=== PATIENT | female | born 1965 | race American Indian/Alaskan Native ===

== ENCOUNTER 2018-07-02 10:39 | Emergency (ER) | payer BC, OTHER ==
--- NOTE | 2018-07-02 12:44 | Emergency Department Report ---
ED Extremity Problem HPI - General Chief complaint: Extremity Problem,Nontraumatic Stated complaint: L KNEE PAIN Time Seen by Provider: 07/02/18 12:29 Source: patient Mode of arrival: Ambulatory Limitations: No Limitations - History of Present Illness Initial comments: This is a 52-year-old female who presents complaining of left knee pain that worsened since yesterday. Patient states intermittently she has had joint issues on her left knee but yesterday the pain was worse than previous times. Patient states that all of a sudden the knee locked up on her and she is unable to bend it without having pain. She denies any injury, fall, trauma to the leg. Patient states she has had her knees locking up on her before in the past. She denies fever, history of gout, calf pain lacerations or swelling to the knee. MD Complaint: joint paint (left knee) Location: left, knee History of Same: Yes -: Yes arthralgia Radiation: none Severity scale (0 -10): 3 Worsens with: walking - Related Data Home Medications Medication Instructions Recorded Confirmed Last Taken Amlodipine Besylate [Norvasc] 10 mg PO DAILY 05/02/18 05/02/18 1 Day Ago ~05/01/18 Losartan/Hydrochlorothiazide 50 mg PO DAILY 05/02/18 05/02/18 1 Day Ago ~05/01/18 Potassium 10 meq PO BID 05/02/18 05/02/18 1 Day Ago ~05/01/18 metFORMIN 500 tab PO BID 05/02/18 05/02/18 1 Day Ago ~05/01/18 Previous Rx's Medication Instructions Recorded Last Taken Type Aspirin [Aspirin BABY CHEW TAB] 81 mg PO QDAY #90 tab.chew 05/03/18 Unknown Rx AtorvaSTATin [Lipitor] 80 mg PO QHS #30 tablet 05/03/18 Unknown Rx Carvedilol [Coreg] 6.25 mg PO BID #60 tablet 05/03/18 Unknown Rx Clopidogrel [Plavix] 75 mg PO QDAY #90 tablet 05/03/18 Unknown Rx Nitroglycerin 0.4 mg SL Q5M PRN #25 tab.subl 05/03/18 Unknown Rx amLODIPine [Norvasc] 10 mg PO QDAY tablet 05/03/18 Unknown Rx glipiZIDE [Glucotrol] 5 mg PO BIDDIAB #60 tablet 05/03/18 Unknown Rx Meloxicam 15 mg PO DAILY #20 tablet 07/02/18 Unknown Rx Tizanidine HCl [Zanaflex] 2 mg PO TID PRN #20 capsule 07/02/18 Unknown Rx Allergies Allergy/AdvReac Type Severity Reaction Status Date / Time lisinopril AdvReac Shortness Verified 05/01/18 20:32 of Breath ED Review of Systems ROS: Stated complaint: L KNEE PAIN Other details as noted in HPI Comment: All other systems reviewed and negative ED Past Medical Hx - Past Medical History Previous Medical History?: Yes Hx Hypertension: Yes Hx Diabetes: Yes Additional medical history: high cholesterol - Surgical History Past Surgical History?: No - Social History Smoking Status: Never Smoker - Medications Home Medications: Home Medications Medication Instructions Recorded Confirmed Last Taken Type Amlodipine Besylate [Norvasc] 10 mg PO DAILY 05/02/18 05/02/18 1 Day Ago History ~05/01/18 Losartan/Hydrochlorothiazide 50 mg PO DAILY 05/02/18 05/02/18 1 Day Ago History ~05/01/18 Potassium 10 meq PO BID 05/02/18 05/02/18 1 Day Ago History ~05/01/18 metFORMIN 500 tab PO BID 05/02/18 05/02/18 1 Day Ago History ~05/01/18 Aspirin [Aspirin BABY CHEW TAB] 81 mg PO QDAY #90 tab.chew 05/03/18 Unknown Rx AtorvaSTATin [Lipitor] 80 mg PO QHS #30 tablet 05/03/18 Unknown Rx Carvedilol [Coreg] 6.25 mg PO BID #60 tablet 05/03/18 Unknown Rx Clopidogrel [Plavix] 75 mg PO QDAY #90 tablet 05/03/18 Unknown Rx Nitroglycerin 0.4 mg SL Q5M PRN #25 tab.subl 05/03/18 Unknown Rx amLODIPine [Norvasc] 10 mg PO QDAY tablet 05/03/18 Unknown Rx glipiZIDE [Glucotrol] 5 mg PO BIDDIAB #60 tablet 05/03/18 Unknown Rx Meloxicam 15 mg PO DAILY #20 tablet 07/02/18 Unknown Rx Tizanidine HCl [Zanaflex] 2 mg PO TID PRN #20 capsule 07/02/18 Unknown Rx ED Physical Exam - General Limitations: No Limitations General appearance: alert, in no apparent distress - Head Head exam: Present: atraumatic, normocephalic - Eye Eye exam: Present: normal appearance - ENT ENT exam: Present: mucous membranes moist - Neck Neck exam: Present: normal inspection - Respiratory Respiratory exam: Present: normal lung sounds bilaterally. Absent: respiratory distress - Cardiovascular Cardiovascular Exam: Present: regular rate, normal rhythm. Absent: systolic murmur, diastolic murmur, rubs, gallop - GI/Abdominal GI/Abdominal exam: Present: soft, normal bowel sounds - Extremities Exam Extremities exam: Present: normal inspection, tenderness (at the left knee) - Expanded Lower Extremity Exam Left Hip exam: Present: normal inspection Upper Leg exam: Present: normal inspection Knee exam: Present: normal inspection, tenderness. Absent: swelling, abrasion, deformity, pain/laxity with valgus, pain/laxity with varus Lower Leg exam: Present: normal inspection, full ROM Ankle exam: Present: normal inspection, full ROM Foot/Toe exam: Present: normal inspection, full ROM Neuro vascular tendon exam: Present: no vascular compromise - Back Exam Back exam: Present: normal inspection, full ROM. Absent: tenderness, CVA tenderness (R), CVA tenderness (L) - Neurological Exam Neurological exam: Present: alert, oriented X3 - Psychiatric Psychiatric exam: Present: normal affect, normal mood - Skin Skin exam: Present: warm, dry, intact, normal color. Absent: rash ED Course Vital Signs 07/02/18 10:53 Temperature 97.7 F Pulse Rate 86 Respiratory 22 Rate Blood Pressure 171/106 [Right] O2 Sat by Pulse 98 Oximetry ED Medical Decision Making - Medical Decision Making 52-year-old female presents with left knee pain. This is an ongoing symptom that has been going on for about a year. Discussed the patient she will need to follow-up with an orthopedic doctor. Orthopedic Dr. Plasencia referral given to patient. Patient was placed in a knee immobilizer to help with the knee. There is no erythema, swelling, fluid joint knee joint was intact. Patient was able to ambulate with some pain. Discuss risks and elevation of the leg. Patient understands instructions and states she will call the orthopedic and make an appointment. Critical care attestation.: If time is entered above; I have spent that time in minutes in the direct care of this critically ill patient, excluding procedure time. ED Disposition Clinical Impression: Knee pain, left, Arthritis of knee, left Disposition: DC- TO HOME OR SELFCARE Is pt being admited?: No Does the pt Need Aspirin: No Condition: Stable Instructions: Arthralgia (ED), Tendinitis (ED), Knee Exercises (GEN), Magnetic Resonance Imaging (ED), Knee Immobilizer (ED) Additional Instructions: Make sure to follow up with the primary care physician as discussed. Take all your medications as you've been prescribed. If you have any worsening symptoms or develop new symptoms please return to ED immediately. Prescriptions: Meloxicam 15 mg PO DAILY #20 tablet Tizanidine HCl [Zanaflex] 2 mg PO TID PRN #20 capsule PRN Reason: Muscle Spasm Referrals: AALIYAH MORLEY MD [Primary Care Provider] - 3-5 Days ARMANDO PLASENCIA MD [Staff Physician] - 3-5 Days Forms: Work/School Release Form(ED) Time of Disposition: 13:24
[2018-07-02] MEDS ORDERED: TORADOL IM ONE (13:05)
[2018-07-02 13:44] VITALS: BP 142/98
== END 2018-07-02 13:43 | disposition home or self-care (01) ==
LOC: ED 10:39
DX: M13.862 Other specified arthritis, left knee (principal); I10 Essential (primary) hypertension; E11.9 Type 2 diabetes mellitus without complications; E78.00 Pure hypercholesterolemia, unspecified; Z88.8 Allergy status to other drugs, medicaments and biological substances; Z79.82 Long term (current) use of aspirin
CPT/HCPCS: 29505; 99282; J1885

== ENCOUNTER 2018-10-24 08:59 | Observation (INO) | payer BC ==
[2018-10-24] MEDS ORDERED: ASPIRIN PO ONE (09:11)
[2018-10-24 09:34] LABS: Basophils % (Auto) 0.7 % (0.0-1.8); Eosinophils # (Auto) 0.2 K/mm3 (0.0-0.4); Hematocrit 34.1 % (30.3-42.9); Hemoglobin 11.5 gm/dl (10.1-14.3); Lymphocytes # (Auto) 1.9 K/mm3 (1.2-5.4); Lymphocytes % (Auto) 43.3 % (13.4-35.0); Mean Corpuscular HGB Conc 34 % (30-34); Mean Corpuscular Volume 86 fl (79-97); Monocytes # (Auto) 0.3 K/mm3 (0.0-0.8); Monocytes % (Auto) 7.4 % (0.0-7.3); Platelet Count 302 K/mm3 (140-440); Red Blood Count 3.94 M/mm3 (3.65-5.03); Red Cell Distribution Width 13.4 % (13.2-15.2)
--- NOTE | 2018-10-24 09:51 | XRay Report ---
CHEST 2 VIEWS INDICATION / CLINICAL INFORMATION: Chest Pain. COMPARISON: Chest x-ray on 05/02/2018. FINDINGS: SUPPORT DEVICES: None. HEART / MEDIASTINUM: No significant abnormality. LUNGS / PLEURA: No significant pulmonary or pleural abnormality. No pneumothorax. ADDITIONAL FINDINGS: No significant additional findings. IMPRESSION: 1. No acute findings. Signer Name: Tadeo Giordano MD Signed: 10/24/2018 9:47 AM Workstation Name: [id number]
[2018-10-24 09:56] LABS: BUN/Creatinine Ratio 22; Blood Urea Nitrogen 13 mg/dL (7-17); Calcium 9.3 mg/dL (8.4-10.2); Hemolysis Index 6
[2018-10-24] MEDS ORDERED: K-DUR PO ONE (10:57)
[2018-10-24] MEDS ORDERED: CATAPRES PO ONE (10:57)
[2018-10-24] MEDS ORDERED: NITRO-BID 2% TP ONE (10:57)
--- NOTE | 2018-10-24 11:09 | Emergency Department Report ---
HPI - General Chief Complaint: Arrhythmia/Palpitations Time Seen by Provider: 10/24/18 10:48 - HPI HPI: Room 4 The patient is a 52-year-old female presenting with chief complaint of chest pain. Patient states symptoms began this morning with central chest pain described as sharp and intermittent in nature. Patient states she developed facial throbbing and throbbing in the left side of her neck. Patient states both arms began throbbing and then tingling. Patient is to shortness of breath and diaphoresis but denies nausea or vomiting. Patient states she feels the same way she did before she needed her cardiac stent April 2018. Patient sta trace she's been compliant with all her medications. Location: [See above] Duration: [See above] Quality: [See above] Severity: [See above] Modifying factors: [see above] Context: [see above] Mode of transportation: [not driving] ED Past Medical Hx - Past Medical History Hx Hypertension: Yes Hx Diabetes: Yes Hx of Cancer: Yes (breast CA status post XRT/chemo) Additional medical history: high cholesterol - Surgical History Hx Coronary Stent: Yes (April 2018) Hx Breast Surgery: Yes (lumpectomy) - Family History Family history: no significant - Social History Smoking Status: Never Smoker Substance Use Type: None (denies illicit drug use) - Medications Home Medications: Home Medications Medication Instructions Recorded Confirmed Last Taken Type Amlodipine Besylate [Norvasc] 10 mg PO DAILY 05/02/18 05/02/18 1 Day Ago History ~05/01/18 Losartan/Hydrochlorothiazide 50 mg PO DAILY 05/02/18 05/02/18 1 Day Ago History ~05/01/18 Potassium 10 meq PO BID 05/02/18 05/02/18 1 Day Ago History ~05/01/18 metFORMIN 500 tab PO BID 05/02/18 05/02/18 1 Day Ago History ~05/01/18 Aspirin [Aspirin BABY CHEW TAB] 81 mg PO QDAY #90 tab.chew 05/03/18 Unknown Rx AtorvaSTATin [Lipitor] 80 mg PO QHS #30 tablet 05/03/18 Unknown Rx Carvedilol [Coreg] 6.25 mg PO BID #60 tablet 05/03/18 Unknown Rx Clopidogrel [Plavix] 75 mg PO QDAY #90 tablet 05/03/18 Unknown Rx Nitroglycerin 0.4 mg SL Q5M PRN #25 tab.subl 05/03/18 Unknown Rx amLODIPine [Norvasc] 10 mg PO QDAY tablet 05/03/18 Unknown Rx glipiZIDE [Glucotrol] 5 mg PO BIDDIAB #60 tablet 05/03/18 Unknown Rx Meloxicam 15 mg PO DAILY #20 tablet 07/02/18 Unknown Rx Tizanidine HCl [Zanaflex] 2 mg PO TID PRN #20 capsule 07/02/18 Unknown Rx ED Review of Systems ROS: Stated complaint: EXCESSIVE BREATHING/FATIGUE Other details as noted in HPI Constitutional: diaphoresis Eyes: denies: eye pain ENT: denies: throat pain Respiratory: shortness of breath Cardiovascular: chest pain Endocrine: no symptoms reported Gastrointestinal: denies: nausea, vomiting Genitourinary: denies: dysuria Musculoskeletal: denies: back pain Neurological: denies: headache Physical Exam - Physical Exam Vital Signs: Vital Signs 10/24/18 10/24/18 09:09 10:34 Temperature 98.3 F Pulse Rate 87 65 Respiratory 16 18 Rate Blood Pressure 161/92 Blood Pressure 118/65 [Right] O2 Sat by Pulse 99 100 Oximetry Physical Exam: GENERAL: The patient is well-developed well-nourished female lying on stretcher not appearing to be in acute distress. [] HEENT: Normocephalic. Atraumatic. Extraocular motions are intact. Patient has moist mucous membranes. NECK: Supple. Trachea midline CHEST/LUNGS: Clear to auscultation. There is no respiratory distress noted. HEART/CARDIOVASCULAR: Regular. There is no tachycardia. There is no gallop rub or murmur. ABDOMEN: Abdomen is soft, nontender. Patient has normal bowel sounds. There is no abdominal distention. SKIN: There is no rash. There is no edema. There is no diaphoresis. NEURO: The patient is awake, alert, and oriented. The patient is cooperative. The patient has normal speech MUSCULOSKELETAL: There is no evidence of acute injury. ED Course Vital Signs 10/24/18 10/24/18 09:09 10:34 Temperature 98.3 F Pulse Rate 87 65 Respiratory 16 18 Rate Blood Pressure 161/92 Blood Pressure 118/65 [Right] O2 Sat by Pulse 99 100 Oximetry ED Medical Decision Making - Lab Data Result diagrams: 10/24/18 09:25 10/24/18 09:25 Laboratory Tests 10/24/18 10/24/18 09:25 09:25 WBC 4.3 L RBC 3.94 Hgb 11.5 Hct 34.1 MCV 86 MCH 29 MCHC 34 RDW 13.4 Plt Count 302 Lymph % (Auto) 43.3 H Rice % (Auto) 7.4 H Eos % (Auto) 4.0 Baso % (Auto) 0.7 Lymph # 1.9 Rice # 0.3 Eos # 0.2 Baso # 0.0 Seg Neutrophils % 44.6 Seg Neutrophils # 1.9 Sodium 137 Potassium 3.2 L Chloride 98.2 Carbon Dioxide 25 Anion Gap 17 BUN 13 Creatinine 0.6 L Estimated GFR > 60 BUN/Creatinine Ratio 22 Glucose 171 H Calcium 9.3 Troponin T < 0.010 - EKG Data -: EKG Interpreted by Me EKG shows normal: sinus rhythm Rate: normal - EKG Data When compared to previous EKG there are: no significant change Interpretation: other (no ischemic changes seen) - Radiology Data Radiology results: report reviewed (chest x-ray) Chest x-ray (read by radiologist)-no acute abnormalities - Differential Diagnosis ACS, pericarditis, Darek syndrome, Critical care attestation.: If time is entered above; I have spent that time in minutes in the direct care of this critically ill patient, excluding procedure time. ED Disposition Clinical Impression: Chest pain Disposition: OP ADMIT IP TO THIS HOSP Is pt being admited?: Yes Does the pt Need Aspirin: Yes Condition: Fair Instructions: Chest Pain (ED) Time of Disposition: 11:11 (hospitalist paged (Dr Velez))
[2018-10-24] MEDS ORDERED: PLAVIX PO ONE (11:57)
[2018-10-24] MEDS ORDERED: COREG PO ONE (11:58)
[2018-10-24] MEDS ORDERED: PROTONIX PO ONE (12:30)
--- NOTE | 2018-10-24 13:03 | History and Physical Report ---
History of Present Illness Date of examination: 10/24/18 Chief complaint: My chest hurts History of present illness: 52 YO Female with Obesity, HTN, HLD, GERD, CAD S/P Stent placement on DAPT, B reast Cancer presents to ED for evaluation. Pt states that she has experienced multiple episodes of chest pain over the past 5 days. Pt states that symptoms began on Saturday, with recurrent episodes over the past 1-2 days. Pt states that her pain episodes last for up to 5 minutes. Pain is 5-8/10, Substernal, intermittent, localized to he central region of her chest, worsened with exertion, not relieved with rest. Pt acknowledges decreased exercise tolerance. Pt transported to [facility] via private vehicle. Pt seen and evaluated in ED and found to have Angina, Uncontrolled HTN with blood pressure of 184/100 as well as symptoms consistent with Diastolic CHF. Pt admitted to telemetry. Cardiology consulted in ED. Patient also reports facial throbbing and throbbing in the left side of her neck. Pt denies fever, chills, palpitations, brbpr, productive cough, unintentional weight loss, night sweats, unilateral leg swelling, calf pain, individual/family history of DVT/PE/Bleeding Blood Clotting disorders. Cath and Echo from 05/06 reviewed. No prior admission for review. All listed medication reconciled at time of admission. Past History Past Medical History: CAD, cancer, GERD, hypertension, hyperlipidemia, other (Obesity) Past Surgical History: Other (Lumpectomy) Social history: , lives with family. denies: smoking, alcohol abuse, prescription drug abuse Family history: diabetes, hypertension Medications and Allergies Allergies Allergy/AdvReac Type Severity Reaction Status Date / Time lisinopril AdvReac Shortness Verified 05/01/18 20:32 of Breath Home Medications Medication Instructions Recorded Confirmed Last Taken Type Amlodipine Besylate [Norvasc] 10 mg PO DAILY 05/02/18 10/24/18 1 Day Ago History ~05/01/18 Potassium 10 meq PO BID 05/02/18 10/24/18 1 Day Ago History ~05/01/18 metFORMIN 1,000 tab PO BID 05/02/18 10/24/18 1 Day Ago History ~05/01/18 Aspirin [Aspirin BABY CHEW TAB] 81 mg PO QDAY #90 tab.chew 05/03/18 10/24/18 Unknown Rx AtorvaSTATin [Lipitor] 80 mg PO QHS #30 tablet 05/03/18 10/24/18 Unknown Rx Carvedilol [Coreg] 6.25 mg PO BID #60 tablet 05/03/18 10/24/18 Unknown Rx Clopidogrel [Plavix] 75 mg PO QDAY #90 tablet 05/03/18 10/24/18 Unknown Rx amLODIPine [Norvasc] 10 mg PO QDAY tablet 05/03/18 10/24/18 Unknown Rx glipiZIDE [Glucotrol] 5 mg PO BIDDIAB #60 tablet 05/03/18 10/24/18 Unknown Rx Review of Systems Constitutional: no weight loss, no weight gain, no fever, no chills Ears, nose, mouth and throat: no ear pain, no ear discharge, no tinnitis, no nose pain, no nasal congestion Breasts: no change in shape, no swelling, no mass Cardiovascular: chest pain, decreased exercise tolerance, no orthopnea, no rapid/irregular heart beat, no syncope, no paroxysmal nocturnal dyspnea Respiratory: no cough, no cough with sputum, no excessive sputum, no hemoptysis, no shortness of breath Gastrointestinal: no abdominal pain, no nausea, no vomiting, no diarrhea, no constipation, no change in bowel habits Genitourinary Female: no pelvic pain, no flank pain, no menorrhagia, no urinary frequency, no urgency Menstruation: no currently menstrual, no premenarcheal, no post hysterectomy, no ammenorrhea, no ammenorrhea on BC, no period normal, no period spotting Rectal: no pain, no incontinence, no bleeding Musculoskeletal: no neck stiffness, no neck pain, no arm numbness/tingling Integumentary: no rash, no pruritis, no redness, no sores, no wounds, no boils Neurological: no transient paralysis, no paralysis, no weakness, no parathesias, no numbness, no syncope, no tremors Psychiatric: no anxiety, no memory loss, no change in sleep habits, no sleep disturbances, no insomnia, no change in libido, no suicidal ideation Endocrine: no cold intolerance, no heat intolerance, no polyphagia, no excessive thirst, no polydipsia, no polyuria, no nocturia, no excessive sweating Hematologic/Lymphatic: no easy bruising, no easy bleeding, no lymphadenopathy, no lymphedema Allergic/Immunologic: no urticaria, no allergic rhinitis, no persistent infections, no anaphylaxis, no angioedema Exam - Constitutional Vitals: Temp Pulse Resp BP Pulse Ox 98.3 F 87 18 184/100 100 10/24/18 09:09 10/24/18 11:21 10/24/18 10:34 10/24/18 11:21 10/24/18 10:34 General appearance: Present: mild distress - EENT Eyes: Present: PERRL ENT: hearing intact, clear oral mucosa - Neck Neck: Present: supple, normal ROM - Respiratory Respiratory effort: normal Respiratory: bilateral: CTA - Cardiovascular Heart Sounds: Present: S1 & S2. Absent: rub, click - Extremities Extremities: pulses symmetrical, No edema Peripheral Pulses: within normal limits - Abdominal General gastrointestinal: Present: soft, non-tender, non-distended, normal bowel sounds Female genitourinary: Present: normal - Integumentary Integumentary: Present: clear, warm, dry - Musculoskeletal Musculoskeletal: gait normal, strength equal bilaterally - Psychiatric Psychiatric: appropriate mood/affect, intact judgment & insight - Neurologic Neurologic: CNII-XII intact, moves all extremities Results - Labs CBC & Chem 7: 10/24/18 09:25 10/24/18 09:25 Labs: Abnormal lab results 10/24/18 10/24/18 Range/Units 09:25 09:25 WBC 4.3 L (4.5-11.0) K/mm3 Lymph % (Auto) 43.3 H (13.4-35.0) % [place] % (Auto) 7.4 H (0.0-7.3) % Potassium 3.2 L (3.6-5.0) mmol/L Creatinine 0.6 L (0.7-1.2) mg/dL Glucose 171 H (65-100) mg/dL Assessment and Plan - Patient Problems (1) Angina at rest Current Visit: Yes Status: Acute Plan to address problem: Admit to telemetry, (2) Diastolic CHF Current Visit: Yes Status: Acute Qualifiers: Heart failure chronicity: chronic Qualified Code(s): I50.32 - Chronic diastolic (congestive) heart failure Plan to address problem: Admit to telemetry, magnesium, thyroid panel, strict I/O, daily weight, afterload reduction, Echo reviewed, Cardiology consulted. (3) HTN (hypertension) Current Visit: Yes Status: Acute Qualifiers: Hypertension type: essential hypertension Qualified Code(s): I10 - Essential (primary) hypertension Plan to address problem: Monitor BP q shift, continue medical management, continue prehospital medicatio n. (4) HLD (hyperlipidemia) Current Visit: Yes Status: Acute Qualifiers: Hyperlipidemia type: mixed hyperlipidemia Qualified Code(s): E78.2 - Mixed hyperlipidemia Plan to address problem: Lipid panel, statin therapy, low cholesterol diet. (5) Obesity Current Visit: Yes Status: Acute Qualifiers: Body mass index: BMI 38.0-38.9 Plan to address problem: Balanced diet, increased physical activity at discharged, +15 min behavior change counseling. (6) CAD (coronary artery disease) Current Visit: Yes Status: Acute Qualifiers: Associated angina: with stable angina Plan to address problem: DAPT, lipid panel, low cholesterol diet, risk factor reduction, statin therapy, (7) DVT prophylaxis Current Visit: Yes Status: Acute Plan to address problem: SCD to BLE while in bed, Pt ambulatory.
[2018-10-24] MEDS ORDERED: ZOFRAN IV PRN (13:24)
[2018-10-24] MEDS ORDERED: PROVENTIL IH PRN (13:24)
[2018-10-24] MEDS ORDERED: MORPHINE IV PRN (13:24)
[2018-10-24] MEDS ORDERED: SODIUM CHLORIDE FLUSH SYRINGE 10 ML IV PRN ×2 (13:24)
[2018-10-24] MEDS ORDERED: TYLENOL PO PRN (13:24)
--- NOTE | 2018-10-24 14:01 | Cat Scan Report ---
CTA CHEST WITH CONTRAST INDICATION : Chest pain and shortness of breath for one week. TECHNIQUE: Axial imaging performed through the chest, with contrast bolus timing set to maximize opa cification of the pulmonary arteries. Sagittal and coronal reformatted images. 3-plane MIP reformatte d images were obtained. All CT scans at this location are performed using CT dose reduction for ALAR A by means of automated exposure control. 100 mL of intravenous contrast administered. COMPARISON: None FINDINGS: Bolus: Contrast bolus timing is adequate. PTE: No filling defect is present to suggest PTE. Mediastinum: Heart size is borderline. No pericardial effusion. The thoracic aorta and major branche s are patent without significant disease. No pathologic mediastinal adenopathy. Lungs: Lungs are clear. Bones: Degenerative changes in the spine with nothing acute. Upper abdomen: Limited imaging of the upper abdomen shows nothing acute. Small hiatal hernia is not ed. IMPRESSION: Negative for PTE. Clear lungs. Small hiatal hernia. Signer Name: Yuan Pace Jr, MD Signed: 10/24/2018 1:57 PM Workstation Name: [id number]
[2018-10-24] MEDS ORDERED: MAGNESIUM SULFATE 1 GM in WATER FOR INJ (PF) 23 ML IV ONE (14:21)
[2018-10-24 14:22] LABS: Chol/HDL Ratio 3.19 %
[2018-10-24 14:29] LABS: Free T4 (Free Thyroxine) 1.15 ng/dL (0.76-1.46)
[2018-10-24] MEDS ORDERED: MAGNESIUM SULFATE 1 GM in NACL 0.9% 50 ML IV ONE (15:00)
[2018-10-24] MEDS: PEPCID PO SCH (21:17)
[2018-10-24] MEDS: SODIUM CHLORIDE FLUSH SYRINGE 10 ML IV SCH (21:18)
[2018-10-25 07:46] LABS: BUN/Creatinine Ratio 22; Blood Urea Nitrogen 13 mg/dL (7-17); Calcium 8.9 mg/dL (8.4-10.2); Hemolysis Index 0
[2018-10-25] MEDS: PEPCID PO SCH ×2 (10:18→22:16)
[2018-10-25] MEDS: SODIUM CHLORIDE FLUSH SYRINGE 10 ML IV SCH ×2 (10:19→22:19)
--- NOTE | 2018-10-25 10:59 | Consultation ---
History of Present Illness Consult date: 10/25/18 Consult reason: chest pain History of present illness: 52 year old -[place] female presenting with chest pain which with recurr ent episodes over the past one to 2 days. Had description of chest pain she claims is similar to when she had an acute inferior wall myocardial infarction in April of this year when she had cardiac cath and a PCI to the right coronary artery. At time of my evaluation patient is chest pain-free Past History Past Medical History: acute AR, CAD, cancer, GERD, hypertension, hyperlipidemia, other (Obesity) Past Surgical History: PTCA, Other (Lumpectomy) Social history: , lives with family. denies: smoking, alcohol abuse, prescription drug abuse Family history: diabetes, hypertension Medications and Allergies Allergies Allergy/AdvReac Type Severity Reaction Status Date / Time lisinopril AdvReac Shortness Verified 05/01/18 20:32 of Breath Home Medications Medication Instructions Recorded Confirmed Last Taken Type Amlodipine Besylate [Norvasc] 10 mg PO DAILY 05/02/18 10/24/18 1 Day Ago History ~05/01/18 Potassium 10 meq PO BID 05/02/18 10/24/18 1 Day Ago History ~05/01/18 metFORMIN 1,000 tab PO BID 05/02/18 10/24/18 1 Day Ago History ~05/01/18 Aspirin [Aspirin BABY CHEW TAB] 81 mg PO QDAY #90 tab.chew 05/03/18 10/24/18 Unknown Rx AtorvaSTATin [Lipitor] 80 mg PO QHS #30 tablet 05/03/18 10/24/18 Unknown Rx Carvedilol [Coreg] 6.25 mg PO BID #60 tablet 05/03/18 10/24/18 Unknown Rx Clopidogrel [Plavix] 75 mg PO QDAY #90 tablet 05/03/18 10/24/18 Unknown Rx amLODIPine [Norvasc] 10 mg PO QDAY tablet 05/03/18 10/24/18 Unknown Rx glipiZIDE [Glucotrol] 5 mg PO BIDDIAB #60 tablet 05/03/18 10/24/18 Unknown Rx Active Meds: Active Medications Acetaminophen (Tylenol) 650 mg PO Q4H PRN PRN Reason: Pain MILD(1-3)/Fever >100.5/FONG Albuterol (Proventil) 2.5 mg IH Q4HRT PRN PRN Reason: Shortness Of Breath Famotidine (Pepcid) 20 mg PO BID [facility] Last Admin: 10/25/18 10:18 Dose: 20 mg Documented by: Morphine Sulfate (Morphine) 2 mg IV Q4H PRN PRN Reason: Pain, Moderate (4-6) Ondansetron HCl (Zofran) 4 mg IV Q8H PRN PRN Reason: Nausea And Vomiting Sodium Chloride (Sodium Chloride Flush Syringe 10 Ml) 10 ml IV BID [facility] Last Admin: 10/25/18 10:19 Dose: 10 ml Documented by: Sodium Chloride (Sodium Chloride Flush Syringe 10 Ml) 10 ml IV PRN PRN PRN Reason: LINE FLUSH Sodium Chloride (Sodium Chloride Flush Syringe 10 Ml) 10 ml IV PRN PRN PRN Reason: LINE FLUSH Review of Systems All systems: negative Cardiovascular: chest pain Physical Examination Vital Signs Temp Pulse Resp BP Pulse Ox 98.3 F 87 16 161/92 99 10/24/18 09:09 10/24/18 09:09 10/24/18 09:09 10/24/18 09:09 10/24/18 09:09 General appearance: no acute distress, obese HEENT: Positive: PERRL, Mucus Membranes Moist Neck: Positive: neck supple, trachea midline Cardiac: Positive: Reg Rate and Rhythm, S1/S2. Negative: Audible Murmur Lungs: Positive: clear to auscultation, Normal Breath Sounds Neuro: Positive: Grossly Intact Abdomen: Positive: Soft, Active Bowel Sounds. Negative: Tender, Distended Female genitourinary: deferred Skin: Positive: Clear Incision: Cardiac Cath Site Musculoskeletal: No Pain, Normal Range of Motion Extremities: Present: normal. Absent: edema Results 10/24/18 09:25 10/25/18 06:35 Lipids 10/24/18 Range/Units 13:30 Triglycerides 91 (2-149) mg/dL Cholesterol 195 (50-199) mg/dL HDL Cholesterol 61 H (40-59) mg/dL Cholesterol/HDL Ratio 3.19 % Comprehensive Metabolic Panel 10/25/18 Range/Units 06:35 Sodium 139 (137-145) mmol/L Potassium 3.3 L (3.6-5.0) mmol/L Chloride 101.6 (98-107) mmol/L Carbon Dioxide 26 (22-30) mmol/L BUN 13 (7-17) mg/dL Creatinine 0.6 L (0.7-1.2) mg/dL Glucose 146 H (65-100) mg/dL Calcium 8.9 (8.4-10.2) mg/dL - EKG Interpretation EKG: sinus rhythm, no acute changes EKG interpretations - Telemetry EKG Rhythm: Sinus Rhythm Assessment and Plan 1. Chest pain rule out ischemic coronary artery disease 2. Coronary artery disease status post PCI with stent placement 3. Hyper-lipidemia 4. Essential hypertension 5. History of breast cancer 6. GERD Plan Patient is currently stable. Cardiac enzymes are negative EKG shows no ischemic or acute changes Patient will be scheduled for a stress MPI tests prior to discharge
[2018-10-25] MEDS ORDERED: D50W (25GM) Syringe IV PRN (15:49)
[2018-10-25] MEDS: HumaLOG SUB-Q SCH ×2 (18:00→22:00)
[2018-10-25] MEDS: BABY ASPIRIN PO SCH (18:01)
[2018-10-25] MEDS: PLAVIX PO SCH (18:01)
[2018-10-25] MEDS: GLUCOTROL PO SCH (18:01)
[2018-10-25] MEDS: GLUCOPHAGE PO SCH (18:02)
[2018-10-25 21:46] LABS: Amphetamine Screen,Urine PRESUMPTIVE NEGATIVE; Benzodiazepines Screen,Urine PRESUMPTIVE NEGATIVE; Cannabinoid Screen,Urine PRESUMPTIVE NEGATIVE; Cocaine Screen,Urine PRESUMPTIVE NEGATIVE; Methadone Screen,Urine PRESUMPTIVE NEGATIVE; Opiate Screen,Urine PRESUMPTIVE NEGATIVE
[2018-10-25] MEDS ORDERED: METFORMIN PO SCH (22:00)
[2018-10-25] MEDS ORDERED: NON-FORMULARY (Potassium 10 MEQ) PO SCH (22:00)
[2018-10-25] MEDS: COREG PO SCH (22:16)
[2018-10-25] MEDS: K-DUR PO SCH (22:16)
[2018-10-26] MEDS: HumaLOG SUB-Q SCH ×4 (08:00→22:31)
[2018-10-26] MEDS: BABY ASPIRIN PO SCH (10:53)
[2018-10-26] MEDS: PEPCID PO SCH ×2 (10:53→22:30)
[2018-10-26] MEDS: NORVASC PO SCH (10:53)
[2018-10-26] MEDS: COREG PO SCH ×2 (10:53→22:30)
[2018-10-26] MEDS: PLAVIX PO SCH (10:54)
[2018-10-26] MEDS: K-DUR PO SCH ×2 (10:54→22:30)
[2018-10-26] MEDS: SODIUM CHLORIDE FLUSH SYRINGE 10 ML IV SCH ×2 (10:54→22:31)
[2018-10-26] MEDS: GLUCOTROL PO SCH ×3 (10:56→16:59)
[2018-10-26] MEDS: GLUCOPHAGE PO SCH ×2 (10:56→16:59)
--- NOTE | 2018-10-26 11:08 | Progress Note ---
Assessment and Plan 1. Chest pain rule out ischemic coronary artery disease 2. Coronary artery disease status post PCI with stent placement 3. Hyper-lipidemia 4. Essential hypertension 5. History of breast cancer 6. GERD Plan Patient is currently stable. Cardiac enzymes are negative EKG shows no ischemic or acute changes Patient will be scheduled for a stress MPI tests prior to discharge Subjective Date of service: 10/26/18 Interval history: Patient feels fine no chest pains. Objective Vital Signs Temp Pulse Resp BP BP Pulse Ox 10/26/18 10:19 99 10/26/18 07:57 97.4 F L 18 116/69 10/26/18 05:00 61 10/26/18 04:32 98.1 F 10/26/18 04:30 67 18 137/83 99 10/26/18 00:05 98.0 F 10/26/18 00:04 75 20 151/88 98 10/25/18 22:16 69 138/81 10/25/18 21:00 18 10/25/18 19:52 98 10/25/18 19:43 98.4 F 69 18 138/81 99 10/25/18 16:32 98.6 F 71 18 145/87 99 - Physical Examination General: Appears Well, No Apparent Distress HEENT: Positive: PERRL, Mucus Membranes Moist Neck: Positive: neck supple, trachea midline Cardiac: Lungs: Neuro: Positive: Grossly Intact Abdomen: Positive: Soft, Active Bowel Sounds. Negative: Tender, Distended /Rectal: Normal Prostate, No Masses Skin: Positive: Clear Incision: Cardiac Cath Site Musculoskeletal: No Pain, Normal Range of Motion Gait: Normal Gait Extremities: Present: normal. Absent: edema
--- NOTE | 2018-10-26 16:52 | Progress Note ---
Assessment and Plan Assessment and plan: 52-year-old woman with history of hypertension who presents to the hospital with chest pain 5 days medical history; hypertension, obesity, hyperlipidemia, GERD, CAD status post stents, history of breast cancer Chest pain Cardiology input appreciated, plan for stress test on Saturday Hypertensive urgency Optimize blood pressure medications Continue chronic home meds for chronic conditions DVT prophylaxis early ambulation History Interval history: Review of systems Constitutional: No fevers, no malaise, no joint pains CVS: No chest pain, no orthopnea, no dyspnea on exertion, no pedal edema GI: No abdominal pain, no diarrhea, no vomiting, no constipation Respiratory: no wheezing, no coughing Hospitalist Physical - Physical exam Narrative exam: General.: Appears well, no distress, nontoxic HEENT: Moist mucous membranes, extraocular muscles intact, no lymphadenopathy Neck: supple Cardiac: S1-S2 heard Lungs: clear to auscultation bilaterally Abdomen: soft , nontender, nondistended, bowel sounds positive Extremities: no edema clubbing or cyanosis Skin: no rash or lesions Neurologic: no gross focal deficits Psych: calm, and cooperative - Constitutional Vitals: Temp Pulse Resp BP Pulse Ox 97.4 F L 62 18 116/69 99 10/26/18 07:57 10/26/18 07:29 10/26/18 07:57 10/26/18 07:57 10/26/18 10:19 General appearance: Present: no acute distress, obese Results - Labs CBC & Chem 7: 10/24/18 09:25 10/25/18 06:35 Labs: Laboratory Last Values WBC 4.3 K/mm3 (4.5-11.0) L 10/24/18 09:25 RBC 3.94 M/mm3 (3.65-5.03) 10/24/18 09:25 Hgb 11.5 gm/dl (10.1-14.3) 10/24/18 09:25 Hct 34.1 % (30.3-42.9) 10/24/18 09:25 MCV 86 fl (79-97) 10/24/18 09:25 MCH 29 pg (28-32) 10/24/18 09:25 MCHC 34 % (30-34) 10/24/18 09:25 RDW 13.4 % (13.2-15.2) 10/24/18 09:25 Plt Count 302 K/mm3 (140-440) 10/24/18 09:25 Lymph % (Auto) 43.3 % (13.4-35.0) H 10/24/18 09:25 Leake % (Auto) 7.4 % (0.0-7.3) H 10/24/18 09:25 Eos % (Auto) 4.0 % (0.0-4.3) 10/24/18 09:25 Baso % (Auto) 0.7 % (0.0-1.8) 10/24/18 09:25 Lymph # 1.9 K/mm3 (1.2-5.4) 10/24/18 09:25 Leake # 0.3 K/mm3 (0.0-0.8) 10/24/18 09:25 Eos # 0.2 K/mm3 (0.0-0.4) 10/24/18 09:25 Baso # 0.0 K/mm3 (0.0-0.1) 10/24/18 09:25 Seg Neutrophils % 44.6 % (40.0-70.0) 10/24/18 09:25 Seg Neutrophils # 1.9 K/mm3 (1.8-7.7) 10/24/18 09:25 Sodium 139 mmol/L (137-145) 10/25/18 06:35 Potassium 3.3 mmol/L (3.6-5.0) L 10/25/18 06:35 Chloride 101.6 mmol/L (98-107) 10/25/18 06:35 Carbon Dioxide 26 mmol/L (22-30) 10/25/18 06:35 15 mmol/L 10/25/18 06:35 BUN 13 mg/dL (7-17) 10/25/18 06:35 0.6 mg/dL (0.7-1.2) L 10/25/18 06:35 Estimated GFR > 60 ml/min 10/25/18 06:35 22 % 10/25/18 06:35 Glucose 146 mg/dL (65-100) H 10/25/18 06:35 POC Glucose 138 (70-105) H 10/26/18 16:04 6.7 % (4-6) H 10/26/18 04:37 Calcium 8.9 mg/dL (8.4-10.2) 10/25/18 06:35 Magnesium 1.60 mg/dL (1.7-2.3) L 10/24/18 13:30 < 0.010 ng/mL (0.00-0.029) 10/24/18 Unknown Triglycerides 91 mg/dL (2-149) 10/24/18 13:30 Cholesterol 195 mg/dL (50-199) 10/24/18 13:30 132 mg/dL (50-130) H 10/24/18 13:30 61 mg/dL (40-59) H 10/24/18 13:30 3.19 % 10/24/18 13:30 TSH 1.110 mlU/mL (0.270-4.200) 10/24/18 13:30 Free T4 1.15 ng/dL (0.76-1.46) 10/24/18 13:30 Presumptive negative 10/25/18 21:00 Presumptive negative 10/25/18 21:00 Ur Barbiturates Screen Presumptive negative 10/25/18 21:00 Ur Phencyclidine Scrn Presumptive negative 10/25/18 21:00 Ur Amphetamines Screen Presumptive negative 10/25/18 21:00 U Benzodiazepines Scrn Presumptive negative 10/25/18 21:00 Presumptive negative 10/25/18 21:00 U Marijuana (THC) Screen Presumptive negative 10/25/18 21:00 Disclamer 10/25/18 21:00 Active Medications - Current Medications Current Medications: Generic Name Dose Route Start Last Admin Trade Name Freq PRN Reason Stop Dose Admin Acetaminophen 650 mg 10/24/18 13:24 Tylenol PO Q4H PRN Pain MILD(1-3)/Fever >100.5/FONG Albuterol 2.5 mg 10/24/18 13:24 Proventil IH Q4HRT PRN Shortness Of Breath Amlodipine Besylate 10 mg 10/26/18 10:00 10/26/18 10:53 Norvasc PO 10 mg QDAY AYANA Administration Aspirin 81 mg 10/25/18 18:00 10/26/18 10:53 Baby Aspirin PO 81 mg QDAY AYANA Administration Atorvastatin Calcium 80 mg 10/25/18 22:00 10/25/18 22:15 Lipitor PO 80 mg QHS AYANA Administration Carvedilol 6.25 mg 10/25/18 22:00 10/26/18 10:53 Coreg PO 6.25 mg BID AYANA Administration Clopidogrel Bisulfate 75 mg 10/25/18 18:00 10/26/18 10:54 Plavix PO 75 mg QDAY AYANA Administration Dextrose 50 ml 10/25/18 15:49 D50w (25gm) Syringe IV PRN PRN Hypoglycemia Famotidine 20 mg 10/24/18 22:00 10/26/18 10:53 Pepcid PO 20 mg BID AYANA Administration Glipizide 5 mg 10/25/18 17:00 10/26/18 10:56 Glucotrol PO Not Given BIDDIAB AYANA Insulin Human Lispro 0 unit 10/25/18 16:30 10/26/18 13:05 Humalog SUB-Q Not Given [facility] Protocol Metformin HCl 1,000 mg 10/25/18 17:00 10/26/18 10:56 Glucophage PO 1,000 mg BIDDIAB AYANA Administration Morphine Sulfate 2 mg 10/24/18 13:24 Morphine IV Q4H PRN Pain, Moderate (4-6) Ondansetron HCl 4 mg 10/24/18 13:24 Zofran IV Q8H PRN Nausea And Vomiting Potassium Chloride 10 meq 10/25/18 22:00 10/26/18 10:54 K-Dur PO 10 meq BID AYANA Administration Sodium Chloride 10 ml 10/24/18 22:00 10/26/18 10:54 Sodium Chloride Flush Syringe 10 Ml IV 10 ml BID AYANA Administration Sodium Chloride 10 ml 10/24/18 13:24 Sodium Chloride Flush Syringe 10 Ml IV PRN PRN LINE FLUSH Sodium Chloride 10 ml 10/24/18 13:24 Sodium Chloride Flush Syringe 10 Ml IV PRN PRN LINE FLUSH Nutrition/Malnutrition Assess - Dietary Evaluation Nutrition/Malnutrition Findings: Nutrition Notes Start: 10/26/18 09:30 Freq: Status: Active Protocol: Document 10/26/18 09:30 LP (Rec: 10/26/18 09:34 LP [id number]) Nutrition Notes Need for Assessment generated from: MD Order,Education Initial or Follow up Brief Note Current Diagnosis Diabetes,Hypertension,Heart Failure Other Pertinent Diagnosis breast CA S/P chemo and radiation Subjective/Other Information Consult for diet education. Pt states wanting education on DM and CHF. Pt states having DM for 10 years and has controlled BG levels with diet and oral medication. Pt states she has only had CHF for 6 months and not educated on diet. Pt eating well, consumed 100% of meal this AM and denies wt changes. #1 Nutrition Diagnosis Food and nutrition-related knowledge deficit Etiology CHF and DM diet As Evidenced by Signs and Symptoms Pt states not being educated on CHF and wants more information on DM diet Nutrition Intervention Teaching Recipient Patient Learning Readiness Good Teaching Methods Discussion,Handout Response to Teaching Verbalize understanding Education Handouts Provided Consistent CHO, CHF and sodium and fluid Revisit per MD consult or patient Sign Off request:
[2018-10-27] MEDS ORDERED: LEXISCAN IV ONE (07:03)
[2018-10-27] MEDS: GLUCOTROL PO SCH (08:14)
[2018-10-27] MEDS: GLUCOPHAGE PO SCH (08:14)
[2018-10-27] MEDS: HumaLOG SUB-Q SCH ×2 (08:15→12:58)
[2018-10-27] MEDS: NORVASC PO SCH (11:11)
[2018-10-27] MEDS: BABY ASPIRIN PO SCH (11:11)
[2018-10-27] MEDS: COREG PO SCH (11:11)
[2018-10-27] MEDS: SODIUM CHLORIDE FLUSH SYRINGE 10 ML IV SCH (11:12)
[2018-10-27] MEDS: PLAVIX PO SCH (11:12)
[2018-10-27] MEDS: K-DUR PO SCH (11:12)
[2018-10-27] MEDS: PEPCID PO SCH (11:12)
[2018-10-27] MEDS ORDERED: APRESOLINE IV PRN (12:11)
--- NOTE | 2018-10-27 12:11 | Discharge Summary ---
Providers - Providers Date of Admission: 10/24/18 13:24 Attending physician: NAS BRAND MD 10/24/18 Consult to Cardiac Rehabilitation [CONS] Routine Reason For Exam: Phase I 10/24/18 13:01 Consult to Physician [CONS] Routine Comment: Consulting Provider: JOSE E MAX Physician Instructions: Reason For Exam: Angina 10/25/18 15:49 Consult to Dietitian/Nutrition [CONS] Routine Physician Instructions: 10 Reason For Exam: Reason for Consult: Diet education Primary care physician: AALIYAH MORLEY Hospitalization Condition: Fair Hospital course: 52-year-old woman with history of hypertension who presents to the hospital with chest pain 5 days medical history; hypertension, obesity, hyperlipidemia, GERD, CAD status post stents, history of breast cancer Chest pain Cardiology input appreciated, plan for stress test on Saturday Hypertensive urgency Optimize blood pressure medications Continue chronic home meds for chronic conditions DVT prophylaxis early ambulation Disposition: TO HOME OR SELFCARE Time spent for discharge: 33 mins Core Measure Documentation - Palliative Care Palliative Care/ Comfort Measures: Not Applicable - Core Measures Any of the following diagnoses?: none Exam - Constitutional Vitals: Temp Pulse Resp BP Pulse Ox 98.8 F 70 18 171/101 98 10/27/18 07:52 10/27/18 11:11 10/27/18 07:52 10/27/18 11:11 10/27/18 07:52 General appearance: Present: no acute distress, well-nourished - EENT Eyes: Present: PERRL ENT: hearing intact, clear oral mucosa - Neck Neck: Present: supple, normal ROM - Respiratory Respiratory effort: normal Respiratory: bilateral: CTA - Cardiovascular Heart Sounds: Present: S1 & S2. Absent: rub, click - Extremities Extremities: pulses symmetrical, No edema Peripheral Pulses: within normal limits - Abdominal General gastrointestinal: Present: soft, non-tender, non-distended, normal bowel sounds Female genitourinary: Present: normal - Integumentary Integumentary: Present: clear, warm, dry - Musculoskeletal Musculoskeletal: gait normal, strength equal bilaterally - Psychiatric Psychiatric: appropriate mood/affect, intact judgment & insight - Neurologic Neurologic: CNII-XII intact, moves all extremities Plan Follow up with: AALIYAH MORLEY MD [Primary Care Provider] - 7 Days Prescriptions: NIFEdipine XL [Procardia Xl] 60 mg PO Q12HR #60 tablet
[2018-10-27 12:55] VITALS: BP 148/81
[2018-10-27] MEDS ORDERED: PROCARDIA XL PO SCH (13:00)
--- NOTE | 2018-10-27 17:47 | Event Note ---
Date: 10/27/18 Patient underwent a Lexiscan thallium stress test, reports a normal myocardial perfusion uptake in all segments, left ventricular ejection fraction of gram 70%. Normal myocardial perfusion study. Patient is recommended to continue medical therapy for coronary disease including dual oral antiplatelet therapy, and presented for outpatient cardiac follow-up 7 days post discharge.
--- NOTE | 2018-10-28 10:04 | Treadmill Report ---
THALLIUM STRESS TEST LEFT VENTRICLE: Left ventricular chamber size is within normal spread. Perfusion study demonstrates homogeneous uptake of the tracer in all segments, no significant perfusion defects identified. Gated analysis demonstrates normal left ventricular systolic function, ejection fraction calculated at greater than 70%. CONCLUSION: Normal myocardial perfusion study. JOB# [id number] CA/NTS
== END 2018-10-27 15:40 | disposition home or self-care (01) ==
LOC: ED 08:59 → 4A 13:24
PROVIDERS: ADMIT Internal Medicine; ATTEND Internal Medicine
DX: I25.119 Atherosclerotic heart disease of native coronary artery with unspecified angina pectoris (principal); I11.0 Hypertensive heart disease with heart failure; I50.30 Unspecified diastolic (congestive) heart failure; E78.5 Hyperlipidemia, unspecified; E66.9 Obesity, unspecified
CPT/HCPCS: 36415; 71046; 71275; 78452; 80048; 80061; 80307; 82962; 83036; 83735; 84439; 84443; 84484; 85025; 93005; 93010; 93017; 96365; 96372; 99284; A9270; A9502; G0378; J2785; J3475; Q9967; J1815